=== PATIENT | male | born 1950 | race Caucasian/White ===

== ENCOUNTER → 2018-05-02 | Outpatient (CLI) | payer OTHER ==
[~2018-05-02] MED LIST: ASPI81TA28 PO; COEN30CA8; DIPH-437 PO; GADAVIST IV PRN; MULT-599; SIMV20TA2 PO
--- NOTE | 2018-05-02 09:05 | DIAGNOSTIC IMAGING REPORT ---
THORACIC SPINE COMBO CLINICAL HISTORY: R29.898 lower extremity weakness. Possible demyelinating disease. Difficulty ambulating. COMPARISON STUDY: No previous studies for comparison. FINDINGS: Imaging was performed in the sagittal and axial planes before and after the administration of 6.5 cc of intravenous Gadavist. The examination is mildly compromised due to motion artifact. There are no areas of marrow replacement suspicious for malignancy. There is a focal fatty rests/hemangiomas at the T3 level. No intrinsic cord lesions are visualized. There are no pathologically enhancing lesions. There is a mild T8-9 disc bulge. There is no significant spinal stenosis. IMPRESSION: 1. Mild T8-9 disc bulge 2. No intrinsic cord lesions. 2. No pathologically enhancing masses. Electronically signed by: Eliezer Alarcon M.D. 05/02/2018 9:04 AM Dictated Date/Time: 05/02/2018 8:52 AM
== END | disposition home or self-care (01) ==
LOC: C.MRIBC 07:36
PROVIDERS: ATTEND Psychiatry & Neurology Neurology
DX: R29.898 Other symptoms and signs involving the musculoskeletal system (principal)

== ENCOUNTER → 2018-05-10 | Outpatient (CLI) | payer OTHER ==
[~2018-05-10] MED LIST changes: -GADAVIST IV PRN; +GLUC1CAP35 PO
--- NOTE | 2018-05-10 14:11 | DIAGNOSTIC IMAGING REPORT ---
SACRUM COCCYX MIN 2 VIEWS CLINICAL HISTORY: M54.16 Lumbar radiculopathy lower back/sacral pain COMPARISON STUDY: No previous studies for comparison. FINDINGS: Degenerative changes are present within the lower lumbar spine. No sacral fractures are visualized. There is no nodes of SI joint fusion. There are moderate to severe osteoarthritic changes within the left hip. IMPRESSION: 1. No acute fractures 2. No conventional radiographic evidence of sacroiliitis 3. Moderate to severe degenerative changes within the left hip Electronically signed by: Eliezer Alarcon M.D. 05/10/2018 2:10 PM Dictated Date/Time: 05/10/2018 2:09 PM
--- NOTE | 2018-05-10 14:12 | DIAGNOSTIC IMAGING REPORT ---
PELVIS/BILATERAL HIP 2 VIEWS CLINICAL HISTORY: M54.16 Lumbar radiculopathy pain COMPARISON STUDY: No previous studies for comparison. FINDINGS: Significant degenerative change left hip. Flattening of the superior femoral articular services including several subchondral cysts. A Possible component of avascular process is considered. There are mild degenerative changes right hip. No additional acute bony abnormality is present. There is no evidence for acetabular protrusion. IMPRESSION: 1. Severe degenerative change left hip possibly with an underlying component of avascular necrosis. 2. Moderate degenerative change right hip. The above report was generated using voice recognition software. It may contain grammatical, syntax or spelling errors. Electronically signed by: Emanuel Encarnacion M.D. 05/10/2018 2:10 PM Dictated Date/Time: 05/10/2018 2:09 PM
== END | disposition home or self-care (01) ==
LOC: C.RAD 13:13
PROVIDERS: ATTEND Psychiatry & Neurology Neurology
DX: M54.16 Radiculopathy, lumbar region (principal)

== ENCOUNTER 2018-05-27 04:48 | Inpatient (IN) | payer OTHER ==
[2018-05-20 08:20] VITALS: BMI 19.0
--- NOTE | 2018-05-20 08:33 | PAT Medication Instructions ---
Service Date May 20, 2018. Current Home Medication List Acetaminophen/Diphenhydramine (Tylenol Pm), 1 TAB PO HS Aspirin (Aspirin Ec), 81 MG PO DAILY Dlhzbpcfmdo-Qtfqdlyivqu-Urb C- (Glucosamine Chondroitin), 1 CAP PO QD Multiple Vitamins W/ Minerals (Mens 50+ Multi Vitamin &) Simvastatin (Zocor), 1 TAB PO HS Medication Instructions For Your Scheduled Surgery - Hold the following medications starting 05/20/18: Tyrlkcecbky-Kassnfnapeo-Aak C- (Glucosamine Chondroitin), 1 CAP PO QD - Hold the following medications the morning of surgery: Multiple Vitamins W/ Minerals (Mens 50+ Multi Vitamin &) - Take the following medications as scheduled the night before surgery: Simvastatin (Zocor), 1 TAB PO HS Acetaminophen/Diphenhydramine (Tylenol Pm), 1 TAB PO HS Aspirin (Aspirin Ec), 81 MG PO DAILY If you have any questions please call us at [phone] or [phone] or [phone]
--- NOTE | 2018-05-20 09:25 | DIAGNOSTIC IMAGING REPORT ---
CHEST 2 VIEWS ROUTINE CLINICAL HISTORY: PAT preoperative COMPARISON STUDY: No previous studies for comparison. FINDINGS: The bones soft tissues and hemidiaphragms are normal. The cardiomediastinal silhouette is normal. The lungs are clear. The pulmonary vasculature is normal. IMPRESSION: Negative chest. The above report was generated using voice recognition software. It may contain grammatical, syntax or spelling errors. Electronically signed by: Emanuel Encarnacion M.D. 05/20/2018 9:24 AM Dictated Date/Time: 05/20/2018 9:24 AM
[2018-05-20 10:06] LABS: BASO % 0.2 %; BASO ABS # 0.02 K/uL (0-0.2); EOS ABS # 0.19 K/uL (0-0.5); HEMATOCRIT 45.8 % (42-52); IG# 0.02 K/uL (0.00-0.02); LYMPH % 21.6 %; MEAN CELL VOLUME 93.7 fL (80-100); MEAN CORPUSCULAR HEMOGLOBIN 30.7 pg (25-34); MEAN CORPUSCULAR HGB CONC 32.8 g/dl (32-36); MEAN PLATELET VOLUME 10.2 fL (7.4-10.4); MONO % 8.3 %; MONO ABS # 0.81 K/uL (0.11-0.59); NEUT % 67.7 %; PLATELET COUNT 344 K/uL (130-400); RED CELL DISTRIBUTION WIDTH CV 13.6 % (11.5-14.5); RED CELL DISTRIBUTION WIDTH SD 46.7 fL (36.4-46.3); WHITE BLOOD COUNT 9.74 K/uL (4.8-10.8)
[2018-05-20 10:12] LABS: CALCIUM 9.4 mg/dl (8.5-10.1); CREATININE 0.99 mg/dl (0.60-1.40); INR 0.9 (0.9-1.1); POTASSIUM 4.2 mmol/L (3.5-5.1); PTT PATIENT 26.8 SECONDS (21.0-31.0)
--- NOTE | 2018-05-20 19:43 | HISTORY & PHYSICAL EXAMINATION ---
DATE OF ADMISSION: 05/27/2018 CHIEF COMPLAINT: Left hip and leg pain. HISTORY OF PRESENT ILLNESS: A 67-year-old gentleman referred by my partner Dr. Olmos., for surgical treatment of his left hip. He has got a six-month history of markedly increasing left hip pain and discomfort. He has been through extensive spine and multiple MRI evaluations of his back. They were initially thinking the pain was coming from back, but it has become more localized to his thigh and groin. For the past four to five months, he has been using a cane to get around pretty much limpidly with any weightbearing at all. He has been miserable. He also described some low back pain, but mostly groin pain. He does drink alcohol, but nothing excessive and can do without it. 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 X-rays show hip arthritis. He would like to proceed with surgical treatment of his hip. PAST MEDICAL HISTORY: 1. Low back pain. PAST SURGICAL HISTORY: 1.Left shoulder surgery for instability. ALLERGIES: None. CURRENT MEDICATIONS: 1. Unspecified cholesterol medicine. 2. Multiple supplements. SOCIAL HISTORY: This is a 67-year-old male. He lives by himself. His years ago. He just retired from the [employer] home business. Does not smoke. Eight drinks per week, but can do without. FAMILY HISTORY: Noncontributory. REVIEW OF SYSTEMS: Negative for diabetes, neurologic problems, vascular problems, bleeding disorders. Denies any chest pain, no shortness of breath. No history of DVT or PE. PHYSICAL EXAMINATION: GENERAL: Reveals a very pleasant almost manic energetic thin male. HEENT: Benign. NECK: Supple. No lymphadenopathy. LUNGS: Clear to auscultation. HEART: Regular rate and rhythm. ABDOMEN: Soft, nontender, nondistended. EXTREMITIES: Grossly neurovascularly intact except as follows: Examination of left hip and leg reveals the patient walks with a markedly antalgic gait. He is using a cane. Without the cane, he limps and almost his leg collapses. The leg lengths clinically appear equal. He has got marked pain and overreaction with hip internal rotation. He has got negative straight leg raise. He is neurologically intact. X-RAYS: X-ray of the left hip reviewed. He has advanced left hip DJD. He has got complete loss of superior joint space. He has got cystic changes, fragmentation and flattening on the femoral head and the acetabulum. MRI of lumbar spine was reviewed. It shows diffuse lumbar spondylosis. A little bit more severe in the upper levels. Some moderate stenosis. Nothing severe. Nerve studies revealed an L4 radiculopathy. 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 He does have significant underlying back pathology, but I think the majority of the pain is coming from his hip. Regardless, I do not think he is going to do better until he gets his hip fixed. PLAN: He is back in for hip replacement. We will plan on taking him to the operating room and do a left total hip replacement. The risks and benefits of this procedure were explained to the patient including, but not limited to DVT, PE, , infection, neurological injury, vascular injury, bleeding problem, pain on range of motion, stiffness, failure to relieve symptoms, and complete relief of symptoms, need for further surgery in the future, fracture, leg length inequality, dislocation and need for blood transfusion. I am concerned about his compliance postoperatively. I emphasized the importance of hip precautions. We will put in big head as possible to try and stabilize his hip. He has a Corvette at home and I told him he cannot ride in this for six weeks. He says he understands. As far as discharge plans, he is going to be discharged to home. He does live by himself, but he says he can get some help. MARIE
[~2018-05-27] VITALS: Ht 182.9 cm; Wt 65.5 kg
[2018-05-27] VITALS (19 sets, daily range): BP systolic 94–127; BP diastolic 62–85; PULSE 50–76; TEMP 36.3–36.9; O2SAT 92–100; Ht 182.9 cm; Wt 65.5 kg
[~2018-05-27 04:48] MED LIST changes: -COEN30CA8
[2018-05-27] MEDS ORDERED: METOCLOPRAMIDE HCL 10 MG TAB PO SCH (06:00)
[2018-05-27] MEDS ORDERED: TRANEXAMIC ACID INJ 1,000 MG x 1 Bag Preop IV SCH ×2 (06:00)
[2018-05-27] MEDS ORDERED: ACETAMINOPHEN 500 MG TAB PO SCH (06:00)
[2018-05-27] MEDS ORDERED: LACTATED RINGER'S 1000ML 500 ML IV SCH (06:00)
[2018-05-27] MEDS ORDERED: FAMOTIDINE 20 MG TAB PO SCH (06:00)
[2018-05-27] MEDS ORDERED: SCOPOLAMINE 1.5 MG TDSY TD SCH (06:00)
[2018-05-27] MEDS ORDERED: LACTATED RINGER'S 1000ML 1,000 ML IV SCH ×2 (06:00)
[2018-05-27] MEDS ORDERED: GABAPENTIN 300 MG CAP PO SCH (06:00)
[2018-05-27] MEDS ORDERED: CEFAZOLIN 2000MG IV PUSH 15 ML IV SCH (06:00)
[2018-05-27] MEDS ORDERED: BACITRACIN 50000 UNIT VIAL ONE (06:28)
[2018-05-27] MEDS ORDERED: BUPIVACAINE/EPINEPHRINE 0.5% MPF 1:200,000 30 ML VIAL ONE (06:28)
[2018-05-27] MEDS ORDERED: MIDAZOLAM HCL 1 MG/ML 2ML VIAL ONE ×3 (06:38→07:33)
[2018-05-27] MEDS ORDERED: MoRPHine SULFATE PF 1 MG/ML 10 ML AMP/VIAL ONE (06:39)
[2018-05-27] MEDS ORDERED: BUPIVACAINE 0.5 % 5 MG/1 ML PF 10ML VIAL ONE (06:42)
--- NOTE | 2018-05-27 06:53 | History & Physical Bridge Note ---
H&P Re-Evaluation Bridge Note: I have examined the patient, reviewed the History & Physical and in the interval since the performance of the History & Physical I have noted the following changes of clinical significance: No changes noted
[2018-05-27] MEDS ORDERED: KETAMINE HCL INJ 50 MG/ML 10 ML VIAL ONE (07:19)
[2018-05-27] MEDS ORDERED: PHENYLEPHRINE 100MCG/ML 5ML SYR ONE (08:02)
[2018-05-27] MEDS ORDERED: ONDANSETRON INJ 2 MG/ML 2 ML VIAL ONE (08:02)
[2018-05-27] MEDS ORDERED: DiphenhydrAMINE HCL 50 MG/ML VIAL ONE (08:02)
[2018-05-27] MEDS ORDERED: PROPOFOL IV EMULSION 10 MG/ML 20 ML VIAL ONE ×2 (08:02→08:07)
--- NOTE | 2018-05-27 08:33 | [facility] Post Operative Brief Note ---
Immediate Operative Summary Operative Date May 27, 2018. Pre-Operative Diagnosis Left hip degenerative joint disease Post-Operative Diagnosis Same as Preop Procedure(s) Performed Left Total Hip Arthroplasty Uncemented Surgeon Dr. Brewer [employer] Stripper Etcher Surgeon(s) Pedro Swain PA-C Estimated Blood Loss 200 ml Findings Consistent with Post-Op Diagnosis Fluids (cc crystalloids) 1400 cc Specimens A. Left Femoral Head Drains None Anesthesia Type Spinal MAC Complication(s) none Disposition Accompanied Pt To Recover: yes Disposition: Recovery Room / PACU Overlapping Procedure I was present for: the critical portions of procedure. I was immediately available: during the entire case
[2018-05-27] MEDS ORDERED: MAGNESIUM HYDROXIDE SUSP 30 ML UDC PO PRN (08:45)
[2018-05-27] MEDS ORDERED: ALUMINUM/MAGNESIUM/SIMETH (MAALOX MAX) 30 ML UDC PO PRN (08:45)
[2018-05-27] MEDS ORDERED: BISACODYL 10 MG SUPP PR PRN (08:45)
[2018-05-27] MEDS ORDERED: SILVER SULFADIAZINE 1% CR 50 GM JAR EXT PRN (08:45)
[2018-05-27] MEDS ORDERED: TAMSULOSIN HCL 0.4 MG CAP PO PRN (08:45)
[2018-05-27] MEDS ORDERED: RXC5 PO (08:52)
[2018-05-27] MEDS ORDERED: ASPI-461 PO (08:52)
[2018-05-27] MEDS ORDERED: ACET-24 PO (08:52)
--- NOTE | 2018-05-27 08:54 | Discharge Instructions ---
Discharge Instructions Date of Service May 27, 2018. Admission Reason for Admission: Left Hip Degenerative Joint Disease Discharge Discharge Diagnosis / Problem: Left Hip Replacement Discharge Goals Goal(s): Decrease discomfort, Improve function, Increase independence, Improve disease control, Therapeutic intervention Activity Recommendations Activity Limitations: per Instructions/Follow-up section (Total Hip Precautions.) Weightbearing Status: Left weightbearing . Instructions / Follow-Up Instructions / Follow-Up ACTIVITY RECOMMENDATIONS: Physical Therapy: * Aggressive physical therapy is not usually needed. You will learn to take care of yourself safely and walk. * Follow the "Hip Precautions Instructions." * In some cases, the social sciences chair at the hospital will arrange to have a therapist come to your house for the first couple of weeks to help you learn these skills. * You need to practice on your own or with the help of a family member as needed. * When you learn these skills, most of the therapy can be done on your own. Home Exercise: * You were shown a series of exercises in the hospital. Do these exercises three to four times each day including the exercises you were shown in physical therapy. Walking: * Get up and walk several times each day. For the first four weeks, try not to stand or walk for more than one hour at a time. If you do stand or walk for more than one hour, you will not hurt anything, but your leg will likely swell. * As you feel comfortable, you may change from the walker or crutches to a cane and then to independent walking. MEDICATIONS: New Medicine: * You will likely be taking one or more of these medicines: 1. Oxycodone - Take, as directed, when you need it, every four to six hours to control your pain. 2. Aspirin - Thins your blood to lessen the chance of forming a blood clot. * The most common side effects of pain medicine and iron are nausea and constipation. If nausea or constipation is too much of a problem or if you have any questions about your new medicines or doses, call [facility] at [phone]. We will try to help you manage these issues. VERY IMPORTANT TO READ AND REVIEW" Pain: * The immediate post-operative period after hip replacement surgery is often quite painful. * You are given a prescription for pain medicine. You should take it, as directed, when you need it, especially before physical therapy and before going to bed. Pain that interferes with sleep is very common and can last several months. * You will likely need pain medicine for the first two to four weeks. It will not stop all of the pain. The pain will lessen and as you feel better, you may change to milder pain medicine such as Tylenol. * The most common side effects of pain medicine are nausea and constipation, so don't take more than you need. SPECIAL CARE INSTRUCTIONS: TEDs/Elastic Stockings: * The white elastic stockings help limit swelling and prevent blood clots from forming in your legs. The more you wear them, the more they work. * Wear them for six weeks. Prevention of Infection: * Take antibiotics one hour before any dental cleaning, dental work, urological procedure, gastrointestinal procedure or any invasive surgery in order to prevent your new joint from getting infected. * You may get the antibiotics from the doctor performing the procedure or you may call our office at before and we will call in a prescription to the pharmacy of your choice. Things to Watch For: * Drainage from the incision site that occurs more than one week after your surgery. * Severely increased leg pain or swelling. * Increased redness at the incision site. * Fever above 102 degrees Fahrenheit. * Unusual chest pain or shortness of breath. * Unusual pain or burning with urination. Call [facility] at with any of the above problems or if you have any questions about your medicines or recovery. FOLLOW UP VISIT: Make an appointment to see your doctor for approximately two weeks after surgery for a progress check and staple removal by calling the office at . Current Hospital Diet Patient's current hospital diet: Regular Diet Discharge Diet Recommended Diet: Regular Diet Procedures Procedures Performed: Left Total Hip Arthroplasty Uncemented Pending Studies Studies pending at discharge: no Medical Emergencies . Who to Call and When: Medical Emergencies: If at any time you feel your situation is an emergency, please call [phone] immediately. . Non-Emergent Contact Non-Emergency issues call your: Surgeon . "Provider Documentation" section prepared by Joseph Brewer. .
[2018-05-27] MEDS ORDERED: ATROPINE SULFATE 0.1 MG/ML 5ML SYR IV PRN (09:00)
[2018-05-27] MEDS ORDERED: HYDROmorphone INJ 0.5 MG/0.5 ML SYR IV PRN (09:00)
[2018-05-27] MEDS ORDERED: MULTIVITAMIN TAB PO SCH (09:00)
[2018-05-27] MEDS ORDERED: ONDANSETRON INJ 2 MG/ML 2 ML VIAL IV PRN ×2 (09:00→10:30)
[2018-05-27] MEDS ORDERED: PHENYLEPHRINE 100MCG/ML 5ML SYR IV PRN (09:00)
[2018-05-27] MEDS ORDERED: EpHEDrine SULFATE INJ 50 MG/ML AMP IV PRN ×2 (09:00→10:30)
--- NOTE | 2018-05-27 09:13 | DIAGNOSTIC IMAGING REPORT ---
L PELVIS/UNILATERAL HIP 1 VIEW CLINICAL HISTORY: 67 years-old Male presenting with IN PACU - A/P PELVIS and LATERAL HIP INCLUDING ALL OF IMPLANT. TECHNIQUE: Single frontal view of the pelvis and crosstable lateral view of the left hip were obtained. COMPARISON: 05/20/2018. FINDINGS: Postsurgical change of total left hip arthroplasty. Expected intra-articular and soft tissue emphysema. Overlying skin marylin noted. No malalignment. No periprosthetic fracture. Osteopenia suspected. Mild degenerative change of the right hip joint. Bony pelvis intact. Vasectomy clips noted with a Davis catheter in place. IMPRESSION: Expected postsurgical appearance status post total left hip arthroplasty. Electronically signed by: Jorge Galaviz M.D. 05/27/2018 9:11 AM Dictated Date/Time: 05/27/2018 9:10 AM
[2018-05-27] MEDS ORDERED: LACTATED RINGER'S 1000ML 500 ML IV PRN (10:21)
[2018-05-27] MEDS ORDERED: NALOXONE HCL INJ 0.08 MG in SYRINGE 1.8 ML IV PRN (10:21)
[2018-05-27] MEDS ORDERED: SODIUM CHLORIDE 0.9% 1000ML 1,000 ML IV PRN (10:21)
[2018-05-27] MEDS ORDERED: NALOXONE HCL INJ 1 MG in SODIUM CHLORIDE 0.9% 1000ML 1,000 ML IV PRN (10:21)
[2018-05-27] MEDS ORDERED: MoRPHine SULFATE 2 MG/ML CARP IV PRN (10:30)
[2018-05-27] MEDS ORDERED: NALOXONE HCL 0.4 MG/1 ML VIAL/CARP IV PRN (10:30)
[2018-05-27] MEDS ORDERED: MoRPHine SULFATE PF 1 MG/ML 10 ML AMP/VIAL EPI PRN (10:30)
[2018-05-27] MEDS ORDERED: NO NARCOTICS OR SEDATIVES SCH (10:30)
[2018-05-27] MEDS ORDERED: DiphenhydrAMINE HCL 50 MG/ML VIAL IV PRN (10:30)
[2018-05-27] MEDS ORDERED: NALBUPHINE HCL INJ 10 MG/ML 1ML AMP IV PRN (10:30)
--- NOTE | 2018-05-27 10:59 | Anesthesiology Progress Note ---
Anesthesia Post Op Note Date & Time May 27, 2018 at 10:59 Vital Signs Pain Intensity: 0 Vital Signs Past 12 Hours Date Time Temp Pulse Resp B/P (MAP) Pulse Ox O2 Delivery O2 Flow Rate FiO2 05/27/18 10:42 50 16 106/69 (81) 100 Nasal Cannula 2.0 05/27/18 10:15 16 100 05/27/18 10:15 100 Nasal Cannula 2.0 05/27/18 09:55 60 12 98/62 (66) 99 Nasal Cannula 2 05/27/18 09:40 58 12 95/60 (66) 100 Nasal Cannula 2 05/27/18 09:30 36.1 58 12 99/60 (64) 99 Nasal Cannula 2 05/27/18 09:20 59 21 94/62 99 Nasal Cannula 4 05/27/18 09:10 65 18 101/65 99 Oxymask 10 05/27/18 09:00 71 23 98/64 100 Oxymask 10 05/27/18 08:50 73 19 99/56 100 Oxymask 10 05/27/18 08:37 36.2 74 19 85/50 99 Oxymask 10 05/27/18 05:32 36.4 67 18 116/85 100 Room Air Notes Mental Status: alert / awake / arousable, participated in evaluation Pt Amnestic to Procedure: Yes Nausea / Vomiting: adequately controlled Pain: adequately controlled Airway Patency, RR, SpO2: stable & adequate BP & HR: stable & adequate Hydration State: stable & adequate Anesthetic Complications: no major complications apparent
--- NOTE | 2018-05-27 11:29 | PROGRESS NOTE ---
DATE: 05/27/2018 SUBJECTIVE: A 67-year-old gentleman postop from a left hip replacement. He is doing well. Not having any pain yet. No chest pain or shortness of breath. Not feeling dizzy or lightheaded. OBJECTIVE: VITAL SIGNS: Temperature 36.1. Vital signs stable. PHYSICAL EXAMINATION: GENERAL: Physical exam shows a pleasant, middle-aged male. He is lying in bed, looks completely comfortable. I had to wake him on going to the room this afternoon. LUNGS: Clear to auscultation. HEART: Has a regular rate and rhythm. ABDOMEN: Soft, nontender, nondistended. EXTREMITIES: Grossly neurovascularly intact except as follows: Examination of the left lower extremity reveals his leg lengths to be equal. Hip is located. Dressing is clean, dry and intact. Thigh is soft and supple. He can dorsiflex and plantarflex his foot appropriately. He is neurologically intact. X-RAYS: X-ray of the left hip from recovery room was reviewed. It shows left uncemented total hip arthroplasty. Components are in good position. No signs of problems. ASSESSMENT: A 67-year-old gentleman postop from a left hip replacement, doing well. His pain is controlled. His hip is located. He is neurologically intact. PLAN: 1. DVT prophylaxis including thigh-high TEDs, SCDs, and aspirin twice a day. 2. PT and OT. Weight bear as tolerated. Left total knee protocol. 3. Pain control, doing well with current pain regimen. We will have to add additional medicines as the spinal wears off. 4. IV antibiotics x24 hours. 5. Disposition: He is planning to be discharged to home with some home health once adequately recovered.
[2018-05-27] MEDS: FERROUS GLUCONATE 324 MG TAB PO SCH ×2 (13:23→17:52)
[2018-05-27] MEDS: PANTOprazole SOD 40 MG TAB PO SCH (13:23)
[2018-05-27] MEDS: DOCUSATE SODIUM 100 MG CAP PO SCH ×2 (13:23→21:06)
[2018-05-27] MEDS: CEROVITE ADV FORMULA TAB PO SCH (13:23)
[2018-05-27] MEDS: D5W AND 1/2NSS + 20MEQ KCL 1,000 ML IV SCH ×2 (13:24→21:04)
[2018-05-27] MEDS: ACETAMINOPHEN 500 MG TAB PO SCH ×2 (13:25→21:07)
[2018-05-27] MEDS: CEFAZOLIN IV 1,000 MG in SYRINGE 0 ML IV SCH ×2 (14:36→22:37)
--- NOTE | 2018-05-27 15:42 | OPERATIVE REPORT ---
DATE OF OPERATION: 05/27/2018 PREOPERATIVE DIAGNOSIS: Left hip degenerative joint disease. POSTOPERATIVE DIAGNOSIS: Left hip degenerative joint disease. PROCEDURE PERFORMED: Left uncemented ceramic on highly cross-linked polyethylene total hip arthroplasty. COMPLICATIONS: None. ESTIMATED BLOOD LOSS: 200 mL. FLUID REPLACEMENT: 1400 mL crystalloid fluid replacement. ANESTHESIA: Spinal. DRAINS: None. SPECIMENS: Left femoral head sent for pathology. OPERATIVE INDICATIONS: The patient is a 67-year-old very active gentleman who has had about a 6-month history of markedly increased left hip pain and discomfort. The patient has been through extensive evaluation of his spine as well as his hips. X-ray showed advanced hip arthritis. Pain has become debilitating to the point where he has had to use his assistance device for the past 3 months. He now elected to proceed with total hip arthroplasty. OPERATIVE FINDINGS: Operative findings revealed advanced left hip DJD. Extensive grade 4 hjkj-al-kvye disease of the femoral head and acetabulum with large hip joint effusion. He looks like he has some degree of avascular necrosis with sloughing of some of the cartilage with some cartilage fragments in the joint. OPERATIVE IMPLANTS: Operative implants consisted of: 1. A Biomet size 56 mm G7 acetabular cup. 2. 6.5 cancellous acetabular screws, 1 at 35 mm length and 1 at 25 mm length. 3. An apex hole eliminator. 4. The highly cross-linked polyethylene liner with 56 mm outer diameter, 36 mm inner diameter. 5. DePuy size 15 KLA Corail femoral stem. 6. A +8.5/36 mm ceramic articular ball. OPERATIVE PROCEDURE: The patient was taken to the operating room, identified and placed on the operating room table in supine position. All contact areas were appropriately padded. IV antibiotics were provided by anesthesia team. A spinal anesthetic had been implemented in the holding area. Davis catheter was placed in sterile fashion. The patient was then placed in the right lateral decubitus position. An axillary roll was placed. Stlberg hip positioner was used for positioning. Left hip and leg were then prepped and draped in usual sterile fashion. A posterolateral approach to the left hip was then performed through a curvilinear incision centered over the greater trochanter. Sharp dissection was carried down through the subcutaneous tissues down to the level of the IT band and gluteal fascia. The IT band and gluteal fascia was incised longitudinally in line with skin incision. The underlying greater trochanteric bursa was excised. The piriformis and external rotators were tagged and taken off the posterior aspect of the femur. Great care was taken throughout the procedure to protect the sciatic nerve at all times. Posterior capsulotomy was then performed leaving a large flap for later repair. Hip was internally rotated and dislocated. Femoral neck osteotomy cut was made with final cut about 12 mm above the lesser trochanter. Femoral head was removed and sent for pathology. The femur was retracted anteriorly. Attention was then drawn to the acetabulum. The acetabular labrum was excised. The pulvinar fat was excised. Sequential reaming of the acetabulum was then performed beginning with a size 49 progressing up to 55. A size 56 mm G7 acetabular shell was then placed in about 40 degrees of lateral opening and about 25 degrees of anteversion. I did increase his anteversion as I was concerned about his compliance postoperatively. The acetabulum was fixed with two 6.5 cancellous acetabular screws. A trial liner was placed. Attention was then drawn to the femur. The proximal femur was entered with a cookie cutter, followed by canal finder. I then broached beginning with a size 8 and progressing up to a 15. We got excellent fit at 15. Calcar reamer was used to smoothen off the calcar. I then trialed the hip. The hip was fully stable, but the soft tissue tension was lax. Therefore, I used a +8.5 head as I was concerned about his compliance. The hip was fully stable in full extension and external rotation, flexion to 90 degrees, internal rotation over 70 degrees. We elected to use these implants. All trial implants were removed. An apex hole eliminator was placed. Highly cross-linked polyethylene liner was placed. A DePuy Corail coxa vera/KLA size 15 femoral stem was impacted in position. I left this just slightly proud. A +8.5/36 mm ceramic articular ball was placed. Hip was located and found to be extremely stable. Attention was then drawn to closing. The wound was irrigated with copious amounts of pulsatile lavage solution. I did inject locally with 60 mL of 0.5% Marcaine with epinephrine. The posterior capsule and external rotators were repaired through drill holes in the posterior trochanter with #2 Ti-Cron suture. The IT band and gluteal fascia were then closed with #1 PDS suture in running fashion. The subcutaneous tissue was then closed with 2 layers with a deep layer 0 Vicryl suture and subcutaneous tissue with 2-0 Dexon suture in a buried interrupted fashion. The skin was closed with skin marylin. Leg was then cleaned and dried and a sterile dressing of Xeroform, 4 x 4's, sterile ABD pad and foam tape was applied. The patient then transferred to the recovery room in stable condition. The patient tolerated the procedure well with no complications. All needle and sponge counts were correct at the end of the operation. I attest to the content of the Intraoperative Record and any orders documented therein. Any exception s are noted below.
[2018-05-27] MEDS ORDERED: NURSING VERBAL MED ORDER ONE ×2 (15:45→16:00)
[2018-05-27] MEDS ORDERED: KETOROLAC TROMETHAMINE 15 MG/ML VIAL ONE (15:54)
[2018-05-27] MEDS: CHECK SCOPOLAMINE PATCH PLACEMENT SCH (16:00)
[2018-05-27] MEDS ORDERED: TRANEXAMIC ACID INJ 1,000 MG in SODIUM CHLORIDE 0.9% 100ML 100 ML IV ONE (16:30)
[2018-05-27] MEDS: SENNA 8.6 MG TAB PO SCH (21:05)
[2018-05-27] MEDS: ASPIRIN 81 MG ECTAB PO SCH (21:05)
[2018-05-27] MEDS: SIMVASTATIN 20 MG TAB PO SCH (21:07)
[2018-05-28] VITALS (7 sets, daily range): BP systolic 104–115; BP diastolic 66–71; PULSE 60–78; TEMP 36.5–37.2; O2SAT 97–100
[2018-05-28] MEDS ORDERED: HYDROmorphone INJ 0.5 MG/0.5 ML SYR IV PRN (01:00)
[2018-05-28] MEDS ORDERED: DC INTRASPINAL MORPHINE SCH (01:00)
[2018-05-28] MEDS ORDERED: ZOLPIDEM TARTRATE 5 MG TAB PO PRN (01:01)
[2018-05-28] MEDS ORDERED: ONDANSETRON INJ 2 MG/ML 2 ML VIAL IV PRN (01:01)
[2018-05-28] MEDS ORDERED: METOCLOPRAMIDE HCL INJ 5 MG/ML 2 ML VIAL IV PRN (01:01)
[2018-05-28] MEDS ORDERED: OXYCODONE HCL IR 5 MG TAB (IMMEDIATE RELEASE) PO PRN (01:01)
[2018-05-28] MEDS: KETOROLAC TROMETHAMINE 15 MG/ML VIAL IV. SCH ×4 (02:31→20:40)
[2018-05-28] MEDS: ACETAMINOPHEN 500 MG TAB PO SCH ×3 (05:31→22:28)
[2018-05-28] MEDS: D5W AND 1/2NSS + 20MEQ KCL 1,000 ML IV SCH (05:32)
[2018-05-28 06:42] LABS: BASO % 0.1 %; BASO ABS # 0.01 K/uL (0-0.2); EOS % 0.5 %; EOS ABS # 0.05 K/uL (0-0.5); HEMATOCRIT 35.5 % (42-52); HEMOGLOBIN 11.9 g/dL (14.0-18.0); IG# 0.03 K/uL (0.00-0.02); LYMPH % 15.7 %; MEAN CELL VOLUME 92.2 fL (80-100); MEAN CORPUSCULAR HEMOGLOBIN 30.9 pg (25-34); MEAN CORPUSCULAR HGB CONC 33.5 g/dl (32-36); MEAN PLATELET VOLUME 10.1 fL (7.4-10.4); MONO % 8.8 %; MONO ABS # 0.95 K/uL (0.11-0.59); NEUT % 74.6 %; NEUT ABS # 8.06 K/uL (1.4-6.5); PLATELET COUNT 222 K/uL (130-400); RED CELL DISTRIBUTION WIDTH CV 13.6 % (11.5-14.5); RED CELL DISTRIBUTION WIDTH SD 45.5 fL (36.4-46.3)
[2018-05-28 07:11] LABS: CALCIUM 7.9 mg/dl (8.5-10.1); CREATININE 0.85 mg/dl (0.60-1.40); POTASSIUM 4.2 mmol/L (3.5-5.1)
[2018-05-28] MEDS: FERROUS GLUCONATE 324 MG TAB PO SCH ×3 (08:05→17:54)
[2018-05-28] MEDS: CHECK SCOPOLAMINE PATCH PLACEMENT SCH ×4 (08:05→23:39)
[2018-05-28] MEDS: PANTOprazole SOD 40 MG TAB PO SCH (09:20)
[2018-05-28] MEDS: DOCUSATE SODIUM 100 MG CAP PO SCH ×2 (09:20→20:40)
[2018-05-28] MEDS: CEROVITE ADV FORMULA TAB PO SCH (09:21)
[2018-05-28] MEDS: ASPIRIN 81 MG ECTAB PO SCH ×2 (09:22→20:41)
[2018-05-28] MEDS: TAPENTADOL ER 50 MG TABCR PO SCH ×2 (09:25→20:43)
--- NOTE | 2018-05-28 10:25 | PROGRESS NOTE ---
DATE: 05/28/2018 CHIEF COMPLAINT: Status post left total hip arthroplasty, postop day #1. PROGRESS: Edward was seen and examined at bedside today. Overall, he is doing fairly well. He is having a little bit of soreness in his hip, it is not too bad. He is a little concerned that he cannot flex his hip very well. He is trying to do all the exercises on the papers. Otherwise, he has no complaints. PHYSICAL EXAMINATION: LEFT HIP: The dressing is clean and dry. His leg lengths are essentially equal. He has active dorsiflexion and plantar flexion of his left ankle. Sensation is intact throughout. LABS: He has an H and H today of 11.9 and 35.5. His glucose is 99. His vital signs are all stable on room air. He is voiding on his own. IMPRESSION: Status post left total hip arthroplasty, postop day #1. PLAN: At this point, he is doing fairly well. I told him that it is difficult to do hip flexion exercises immediately on postop day #1. He was glad to hear that. He will be seen by physical therapy today for ambulation. If he is feeling better this afternoon, I told him he could be discharged to home. Otherwise, if he wants to stay an extra night, I can see him tomorrow morning. Will use aspirin for DVT prophylaxis.
[2018-05-28] MEDS: SENNA 8.6 MG TAB PO SCH (20:40)
[2018-05-28] MEDS: SIMVASTATIN 20 MG TAB PO SCH (20:41)
[2018-05-29] MEDS: KETOROLAC TROMETHAMINE 15 MG/ML VIAL IV. SCH ×2 (05:59→07:47)
[2018-05-29] MEDS: ACETAMINOPHEN 500 MG TAB PO SCH (05:59)
[2018-05-29 06:39] VITALS: BP 127/75; PULSE 78; TEMP 37.1; O2SAT 98
--- NOTE | 2018-05-29 06:42 | PROGRESS NOTE ---
DATE: 05/29/2018 CHIEF COMPLAINT: Status post left total hip arthroplasty, postop day #2. PROGRESS: Overall, Edward is doing fairly well. He stayed overnight just to make sure he had a little bit of more strength before being discharged to home. He did well yesterday with physical therapy. His pain is better today and he has no new complaints. PHYSICAL EXAMINATION: LEFT HIP: The dressing is clean and dry, and his leg lengths are equal. He can flex his hip this morning and he is neurovascularly intact. IMPRESSION: Status post left total hip arthroplasty, postop day 2. PLAN: At this point, he is doing well. He is on aspirin for DVT prophylaxis. He has been participating well with physical therapy. He can be discharged to home with [facility] later today.
[2018-05-29] MEDS: CHECK SCOPOLAMINE PATCH PLACEMENT SCH (07:48)
[2018-05-29] MEDS: FERROUS GLUCONATE 324 MG TAB PO SCH (07:49)
[2018-05-29] MEDS: TAPENTADOL ER 50 MG TABCR PO SCH (08:22)
[2018-05-29] MEDS: PANTOprazole SOD 40 MG TAB PO SCH (08:22)
[2018-05-29] MEDS: CEROVITE ADV FORMULA TAB PO SCH (08:22)
[2018-05-29] MEDS: DOCUSATE SODIUM 100 MG CAP PO SCH (08:23)
[2018-05-29] MEDS: ASPIRIN 81 MG ECTAB PO SCH (08:23)
[2018-05-29 08:49] VITALS: BP 127/75; PULSE 78; TEMP 37.1; O2SAT 98
--- NOTE | 2018-06-02 16:14 | DISCHARGE SUMMARY ---
ADMITTING PHYSICIAN AND SURGEON: Dr. Brewer. ADMITTING DIAGNOSIS: Left hip degenerative joint disease. SURGERY PERFORMED: Left total hip arthroplasty. SECONDARY DIAGNOSIS: Low back pain. CONSULTS: None obtained. HISTORY AND PHYSICAL EXAMINATION: Well documented in the patient's chart. HOSPITAL COURSE: Patient was admitted on 05/27/2018, underwent total hip arthroplasty. He tolerated the procedure well. There were no complications. He was transferred to the PACU postoperatively and later to the orthopedic floor for further care. He was given Ancef for antibiotic prophylaxis, KAYLYNN stockings, SCDs and aspirin for DVT prophylaxis. Hemoglobin, hematocrit and vital signs were monitored during his hospital stay and remained stable. He did not require any blood transfusions. There were no complications. By postoperative day 2, he was tolerating a regular diet, pain was controlled with oral pain medicine. He was participating in physical therapy. Postop day 2, he was discharged home, set up with home health services, given printed discharge instructions including new prescriptions for extra strength Tylenol, aspirin, oxycodone. He was instructed to continue his home medicines with the exception of Tylenol PM and aspirin which were changed. Continue physical therapy, weightbearing as tolerated, KAYLYNN stockings, total hip precautions and follow up approximately 2 weeks postoperatively or sooner if any problems or concerns.
== END 2018-05-29 10:40 | disposition home health service (06) | DRG 470 ==
LOC: C.ACU 04:48 → C.3E 06:40 → ENRESERV 09:22
PROVIDERS: ADMIT Orthopaedic Surgery Sports Medicine; ATTEND Orthopaedic Surgery Sports Medicine
PROC: 0SRB04A Replacement of Left Hip Joint with Ceramic on Polyethylene Synthetic Substitute, Uncemented, Open Approach (ICD-10-PCS; principal; 2018-05-27 07:00)
DX: M16.12 Unilateral primary osteoarthritis, left hip (principal); M87.9 Osteonecrosis, unspecified; M25.452 Effusion, left hip; M47.816 Spondylosis without myelopathy or radiculopathy, lumbar region; M48.061 Spinal stenosis, lumbar region without neurogenic claudication; E78.5 Hyperlipidemia, unspecified; Z79.82 Long term (current) use of aspirin; Z79.899 Other long term (current) drug therapy

== ENCOUNTER 2024-03-28 06:33 | Observation (INO) ==
--- NOTE | 2024-03-21 13:27 | PAT Medication Instructions ---
Medication Instructions Date of Service March 21, 2024 Home Medications Medication Instructions Recorded Jules Foster #1 ea 03/21/24 aspirin 81 mg tablet,delayed release 81 mg PO DAILY ocutrjaenvqo-xgoyzgtt-bazzyb tablet (Multivitamin 50 Plus tablet) 1 tab PO DAILY omeprazole 20 mg tablet,delayed release 20 mg PO QAM tamsulosin 0.4 mg capsule 0.4 mg PO HS Continue as directed aspirin 81 mg tablet,delayed release 81 mg PO DAILY (unless surgeon directed otherwise) DO NOT take the morning of surgery xbjmfpjftjmo-hletiyko-qocbhi tablet (Multivitamin 50 Plus tablet) 1 tab PO DAILY Take morning of surgery With a small sip of water, OTHERWISE NOTHING TO EAT OR DRINK AFTER MIDNIGHT: omeprazole 20 mg tablet,delayed release 20 mg PO QAM Take evening before surgery tamsulosin 0.4 mg capsule 0.4 mg PO HS Other Notes If you have any questions please call us at [phone] or [phone] or [phone] or [phone]
--- NOTE | 2024-03-23 08:33 | Anesthesiology Consultation ---
Date of Service March 23, 2024 Assessment & Plan (1) Encounter for pre-operative examination: - Infectious disease screening: Per assessment on 03/23/24: No known recent infectious disease contacts or current infectious disease symptoms. - Outpatient joint assessment: Pt currently scheduled for inpatient pathway. If surgeon requests review for outpatient joint pathway, patient is an acceptable candidate for outpatient joint program from anesthesia standpoint pending surgeon's office assessment that patient is motivated, has good support and completes Same Day Joint Program preop requirements. Chart Review Chart Review: Acceptable Risk for Surgery and Patient seen in Pre Admission Testing Teaching & Discussion Pre-Anesthesia Teaching/Discussion Notes: Instructed NPO after midnight before surgery,except medications with 15 cc of water. Medication instructions provided according to the PAT guidelines. History Surgery Operation Date: 03/28/24 07:00 Proposed Procedures p Right Total Hip Arthroplasty - Joseph Brewer MD Height/Weight Height: 6 ft 0.5 in Weight: 67.9 kg Allergies Allergy/AdvReac Type Severity Reaction Status Date / Time No Known Allergies Allergy Verified 03/21/24 12:53 Medications Home Medications Medication Instructions Recorded Confirmed Last Taken Wheeled Walker #1 ea 03/21/24 Unknown aspirin 81 mg tablet,delayed 81 mg PO DAILY 03/21/24 03/21/24 Unknown release rgjorudemekq-havxqxob-ydwnzg 1 tab PO DAILY 03/21/24 03/21/24 Unknown tablet (Multivitamin 50 Plus tablet) omeprazole 20 mg tablet,delayed 20 mg PO QAM 03/21/24 03/21/24 Unknown release tamsulosin 0.4 mg capsule 0.4 mg PO HS 03/21/24 03/21/24 Unknown Past Medical History Medical History (Updated 03/23/24 @ 13:55 by Guadalupe Cook) Anemia Arthritis BPH (benign prostatic hyperplasia) Degenerative joint disease of right hip Hearing deficit Hx of gout Hyperlipidemia Exercise / Class Metabolic Activity III < 4 Walking/Shop/Light housework (Regular gym activity, activity limited by hip pain) Past Surgical History Surgical History Family history of reaction to anesthesia Son: Slow to wake/difficulty breathing with anesthesia emergence - vasectomy and hernia repair. No further details available. No similar personal issues for patient. H/O shoulder surgery left History of cataract surgery R/L History of colonoscopy History of hip surgery Left hip dislocation repair History of tooth extraction History of total left hip arthroplasty Left JOSE ELIAS: SAB at [facility] (05/27/2018) Hx of vasectomy Past Anesthesia History No Hx of Anesthesia Complications * Son: Slow to wake/difficulty breathing with anesthesia emergence - vasectomy and hernia repair. No further details available. No personal similar issues for patient. History of PONV No Hx of PONV and No Hx of Motion Sickness Social History Smoking Status: Never smoker Do You Dip or Chew Tobacco: No Hx Alcohol Use: Yes Alcohol type: hard liquor alcohol intake frequency: a few times a week Hx Substance Use: Yes substance use type: marijuana (Daily use, inhaled) Review of Systems Patient denies chest pain, shortness of breath, dyspnea on exertion, fever, chills, cough, wheezing, palpitations. Physical Exam Vital Signs BP P TEMP SP02 RESP Physical Full cervical extension range of motion. Full TMJ range of motion. TMD __ finger breaths Mallampati Score ___ Dentition: missing sides/molars, upper front "repaired" Lungs: clear throughout to auscultation Cardiac: regular rate and rhythm, no murmurs noted Spine: normal Carotid arteries: negative bruit Extremities: no LE edema Lab Results Anesthesia Preop Results Results Anesthesia Widget: WBC 6.73 K/ul (4.8-10.8) 03/23/24 Hgb 12.9 g/dl (14.0-18.0) L 03/23/24 Hct 38.5 % (42.0-52.0) L 03/23/24 Plt 285 K/uL (130-400) 03/23/24 Na 136 mmol/L (136-145) 03/23/24 K 3.9 mmol/L (3.5-5.1) 03/23/24 Cl 104 mmol/L (98-107) 03/23/24 CO2 26 mmol/L (21-32) 03/23/24 BUN 21 mg/dl (6-23) 03/23/24 Creat 0.97 mg/dl (0.6-1.4) 03/23/24 Glucose Level 94 mg/dl (70-99(Fasting)) 03/23/24 PT 10.3 Seconds (9.0-12.0) 03/23/24 PTT 27 Seconds (21-31) 03/23/24 INR 0.9 (0.9-1.1) 03/23/24 Blood Type O Positive 03/23/24 Antibody Screen NEGATIVE 03/23/24 Testing Electrocardiogram Date: 03/23/24 SR with PVCs at 72bpm. "Otherwise normal ECG" Chest X-Ray Date: 03/23/24 FINDINGS: Lung volumes are normal. Lungs are clear. A nipple shadow projects over the left lower lung. Multiple old right-sided rib fractures are unchanged. There is no pneumothorax or pleural effusion. Cardiac size is normal. Mediastinal contours are normal. There is no evidence for pulmonary edema. IMPRESSION: No acute cardiopulmonary findings.
[~2024-03-28 06:33] MED LIST changes: +ACETAMINOPHEN 500 MG TAB PO SCH; -ASPI81TA28 PO; +CeleBREX 200 MG CAP PO SCH; -DIPH-437 PO; +FAMOTIDINE 20 MG TAB PO SCH; -GLUC1CAP35 PO; +LR 500ML BOLUS, THEN 15ML/HR IV SCH; +LR 60ML/HR IV SCH; +METOCLOPRAMIDE HCL 10 MG TABLET PO SCH; -MULT-599; +ROPIVACAINE 0.5% 5 MG/ML 30 ML VIAL ONE; -SIMV20TA2 PO; +TRANEXAMIC ACID 1,000 MG **IV Pre-op IV SCH; +ceFAZolin 2000MG 2,000 MG/15 ML SYR IV SCH; +dexAMETHasone**PF** 10 MG/ML VIAL IV SCH
--- NOTE | 2024-03-28 06:47 | History & Physical Bridge Note ---
Date of Service March 28, 2024 History & Physical Bridge Note I have examined the patient, reviewed the History & Physical and in the interval since the performance of the History & Physical I have noted the following changes of clinical significance: no changes noted
[2024-03-28] MEDS: LR 500ML BOLUS, THEN 15ML/HR IV SCH (07:27)
[2024-03-28] MEDS: LR 60ML/HR IV SCH (07:28)
[2024-03-28] MEDS: CeleBREX 200 MG CAP PO SCH (07:36)
[2024-03-28] MEDS: dexAMETHasone**PF** 10 MG/ML VIAL IV SCH (07:36)
[2024-03-28] MEDS: FAMOTIDINE 20 MG TAB PO SCH (07:36)
[2024-03-28] MEDS: METOCLOPRAMIDE HCL 10 MG TABLET PO SCH (07:36)
[2024-03-28] MEDS: ACETAMINOPHEN 500 MG TAB PO SCH ×2 (07:36→14:28)
[2024-03-28] MEDS ORDERED: MIDAZOLAM HCL 1 MG/ML 2ML VIAL ONE (07:38)
[2024-03-28] MEDS ORDERED: PROPOFOL IV EMULSION 10 MG/ML 20 ML VIAL IV ONE (07:38)
[2024-03-28] MEDS ORDERED: LIDOCAINE 2% 2 ML VIAL/AMP(20MG/ML) INFIL ONE (07:38)
[2024-03-28] MEDS ORDERED: fentaNYL citrate PF 100 MCG/2 ML VIAL IV PRN (08:18)
[2024-03-28] MEDS ORDERED: ONDANSETRON INJ 2 MG/ML 2 ML VIAL IV PRN ×2 (08:18→11:36)
[2024-03-28] MEDS ORDERED: ePHEDrine sulfate 50 MG/ML AMP IV PRN (08:18)
[2024-03-28] MEDS ORDERED: ATROPINE SULFATE 0.1 MG/ML 10ML SYR IV PRN (08:18)
[2024-03-28] MEDS ORDERED: HYDROmorphone INJ 1 MG/ML SYRINGE IV PRN (08:18)
[2024-03-28] MEDS: TRANEXAMIC ACID 1,000 MG **IV Pre-op IV SCH (08:34)
[2024-03-28] MEDS: ceFAZolin 2000MG 2,000 MG/15 ML SYR IV SCH (08:55)
[2024-03-28] MEDS ORDERED: fentaNYL citrate PF 100 MCG/2 ML VIAL ONE (09:21)
[2024-03-28] MEDS ORDERED: KETAMINE HCL 10MG/ML SYR ONE (09:22)
[2024-03-28] MEDS: BUPIVACAINE/EPINEPHRINE 0.5% MPF 1:200,000 30 ML VIAL ONE (09:29)
[2024-03-28] MEDS ORDERED: ONDANSETRON INJ 2 MG/ML 2 ML VIAL ONE (09:37)
[2024-03-28] MEDS ORDERED: PHENYLEPHRINE 100MCG/ML 10ML SYR IV ONE (09:38)
[2024-03-28] MEDS ORDERED: ePHEDrine sulfate 50 MG/5 ML SYR ONE (09:55)
--- NOTE | 2024-03-28 10:37 | Operative Report ---
PG Post Operative Report Pre & Post Diagnosis Operation Date: 03/28/24 08:50 Pre-Op Diagnosis: Right Hip Degenerative Joint Disease Post-Op Diagnosis: Right Hip Degenerative Joint Disease with partial hip abductor tear I identified the patient and participated in the time-out.: Yes Procedure Operation Date: 03/28/24 08:50 Actual Procedures p Right Total Hip Arthroplasty(Right) with hip abductor repair- Joseph Brewer MD Surgeon Joseph Brewer MD Civil Litigation Attorney Pedro Swain PA-C Estimated Blood Loss 100 Findings Consistent with Post-Op Diagnosis Operative findings were advanced right hip DJD. He extensive grade 4 dxhw-bj-zlzu disease the femoral head and acetabulum. Fairly large medial acetabular osteophyte. Fairly osteopenic. Specimens Right femoral head sent for pathology. Anesthesia Type Spinal MAC Complications none Disposition Accompanied Patient To Recovery: No Indications Patient is a 73-year-old very active gentleman is had a long history of hip problems. He had his left hip replaced several years ago was done well from this. Over the past several years he developed increased pain discomfort in her right hip groin and testicular area. Is gone undergone extensive neurological workup which was fairly negative. Eventually had a hip x-ray which showed advanced hip arthritis. He is electing proceed with total hip arthroplasty. Description of Procedure Operative implants consist of: 1 Biomet G7 size 60 mm acetabular shell. 2. 6.5 cancellous acetabular screws 1 of 35 mm in length and 1 of 25 mm length. 3. [place] hole supervisor leaf spring fabrication. 4. Highly cross-linked polyethylene liner with a 60 mm outer diameter and 40 mm inner diameter. 5. DePuy Corail size 15 KLA femoral stem. 6. +1.5/40 mm ceramic articular ball. The patient was taken the operating, identified, placed on the operating table in the supine position but all contact areas were appropriately padded. IV antibiotics were by anesthesia team. A spinal anesthetic had been implemented holding area. The patient was then placed in the left lateral decubitus position. Axillary roll was placed. Distal Birkett position was used for positioning. The right hip and leg were then prepped and draped in usual sterile fashion. A posterolateral approach to the right hip was then performed to a curvilinear incision centered over the greater trochanter. Sharp dissection carried through subcutaneous tissue down to level the IT band gluteal fascia the IT band gluteal fascia incised longitudinally in line with skin incision. The underlying greater bursa was excised. The piriformis and external rotators along with the posterior joint capsule were then released from the posterior aspect hip as a single layer. Hip was internally rotated and dislocated. Femoral neck osteotomy cut was made with Final Cut about 12 mm above the lesser trochanter. Femoral head was removed and sent for pathology. The femur was retracted anteriorly. Attention drawn the acetabulum. The acetabular labrum was excised. Pulmonary fat was excised. Sequential reaming the acetabular was then performed with a size 47 progressing up to a 59. Reamed a little bit with a 60 reamer. I then placed a 60 mm Biomet G7 acetabular shell in about 40 degrees lateral opening and 20 degrees of anteversion. Was fixed with two 6.5 cancellous acetabular screws. Trial liner was placed. Attention drawn the femur. The proximal femur was then with a Spine Pain Management cutter followed by canal finder. I then broached beginning with size 8 and progressed up to 15. Get excellent fitted to 15. Trialed the hip. With a +5 articular ball the hip just seemed a little bit too tight in extension to clinic. The hip was fully stable. We elect to use +1.5 head. The hip was fully stable. Leg lengths appeared equal. We elect place his implants. All trial implants were removed. An apex hole supervisor leaf spring fabrication was placed. Highly cross-linked polyethylene liner was placed. A size 15 KLA femoral stem was impacted in position. A +1.5/40 mm ceramic articular ball was placed. Hip was located and once again found to be stable. Attention drawn toward closing. The wound was irrigated coconuts pulsatile lavage solution. We did inject locally with 60 cc of half percent Marcaine with epinephrine. Posterior capsule and external rotators were then repaired through drill holes in the posterior trochanter with #2 Tycron suture. The patient did have a partial hip abductor tear. We then repaired the hip abductors to the vastus lateralis with #1 Vicryl suture in a ivhwxs-jh-irmiw fashion. The IT band gluteal fascia then closed with #1 PDS suture running fashion. The subcutaneous tissues were then closed with 2 layers of the deep layer #1 Vicryl suture subcutaneous tissue with 2-0 Dexon suture in a buried interrupted fashion. Skin was closed skin marylin. Leg was then cleaned and dried and sterile dressing composed of Xeroform, 4 fours, sterile ABD pad and foam tape was applied. Patient then transferred to the recovery room in stable condition. Patient tolerated procedure well and there were no complications. Pedro Swain, my physician executive chef assistant, was present for the entire procedure. His assistance was essential and required for appropriate patient positioning, prepping and draping, surgical exposure, performing the technical details of the operation, placement the implants, closure of the wound, and placement of the sterile bandage. I attest to the content of the Intraoperative Record and any orders documented therein. Any exceptions are noted below.
--- NOTE | 2024-03-28 10:40 | Anesthesiology Progress Note ---
Date of Service March 28, 2024 Anesthesia Post Procedure Vital Signs Vital Signs: Temp Pulse Resp BP Pulse Ox O2 Del Method 03/28/24 07:04 36.6 C 71 20 121/82 96 Room Air Pain Intensity Right Hip: Pain Intensity: 8 Transfer of Care Handoff Completed per policy Notes Mental Status: alert / awake / arousable and participated in evaluation Patient Amnestic to Procedure: Yes Nausea / Vomiting: adequately controlled Pain: adequately controlled Airway Patency, RR, SpO2: stable & adequate BP & HR: stable & adequate Hydration State: stable & adequate Anesthetic Complications: no major complications apparent and Pt Satisfied with anesthetic care
--- NOTE | 2024-03-28 11:33 | XRay Report ---
XR hip 1V RT w pelvis CLINICAL HISTORY: IN PACU - Post Surgical TECHNIQUE: 1 view of the right hip and single frontal view of the pelvis were obtained. Comparison: Comparison is made to pelvis radiograph 06/08/2019 FINDINGS: Patient is status post right total hip arthroplasty with expected postsurgical changes including soft tissue swelling and subcutaneous emphysema. Left hip arthroplasty is unchanged. IMPRESSION: Expected postoperative appearance status post placement of total hip arthroplasty. ACT 112: Negative or not required by law. Electronically signed by: Nick Cardoza M.D. 03/28/2024 11:32 AM
[2024-03-28] MEDS ORDERED: METOCLOPRAMIDE HCL INJ 5 MG/ML 2 ML VIAL IV PRN (11:36)
[2024-03-28] MEDS ORDERED: NALOXONE HCL 0.4 MG/1 ML VIAL/CARP IV PRN (11:36)
[2024-03-28] MEDS ORDERED: bisacodyL 10 MG SUPP PR PRN (11:36)
[2024-03-28] MEDS ORDERED: MAGNESIUM HYDROXIDE SUSP 30 ML UDC PO PRN (11:36)
[2024-03-28] MEDS: SODIUM CHLORIDE 0.9% 1,000 ML IV SCH (11:48)
[2024-03-28] MEDS: KETOROLAC TROMETHAMINE 15 MG/ML VIAL IV SCH (12:56)
[2024-03-28] MEDS ORDERED: ACETAMINOPHEN 500 MG TAB PO SCH (14:00)
[2024-03-28] MEDS: TRANEXAMIC ACID / 0.7% NACL 1,000 MG/100 ML BAG IV SCH (16:00)
[2024-03-28] MEDS: ceFAZolin 1000MG 1,000 MG/7.5 ML SYR IV SCH (18:06)
[2024-03-28] MEDS: ASCORBIC ACID 500 MG TAB PO SCH (18:07)
[2024-03-28] MEDS: SENNA 8.6 MG TAB PO SCH (20:05)
[2024-03-28] MEDS: DOCUSATE SODIUM 100 MG CAP PO SCH (20:05)
[2024-03-28] MEDS: TAMSULOSIN HCL 0.4 MG CAP PO SCH (20:05)
[2024-03-28] MEDS: ASPIRIN 81 MG ECTAB PO SCH (20:05)
[2024-03-28] MEDS ORDERED: SENNA 8.6 MG TAB PO SCH (21:00)
[2024-03-29] MEDS: traMADol HCL 50 MG TABLET PO PRN (04:31)
[2024-03-29 07:21] LABS: Basophils # (auto) 0.02 K/uL (0.00-0.20); Basophils % (auto) 0.2 %; Eosinophils # (auto) 0.01 K/uL (0.00-0.50); Eosinophils % (auto) 0.1 %; Hematocrit (blood only) 33.1 % (42.0-52.0); Hemoglobin 11.2 g/dl (14.0-18.0); Immature Granulocytes # (auto) 0.07 K/uL (0.01-0.20); Immature Granulocytes % (auto) 0.6 %; Lymphocytes # (auto) 1.66 K/uL (1.20-3.40); Lymphocytes % (auto) 13.2 %; Mean Corpuscular Hemoglobin 31.1 pg (25.0-34.0); Mean Corpuscular Hgb Conc 33.8 g/dL (32.0-36.0); Mean Corpuscular Volume 91.9 fL (80.0-100.0); Mean Platelet Volume 9.9 fL (9.4-12.4); Monocytes # (auto) 1.22 K/uL (0.11-0.59); Monocytes % (auto) 9.7 %; Neutrophils # (auto) 9.63 K/uL (1.40-6.50); Neutrophils % (auto) 76.2 %; Platelet Count 230 K/uL (130-400); RDW Coefficient of Variation 13.6 % (11.5-14.5); White Blood Count 12.61 K/ul (4.8-10.8)
[2024-03-29] MEDS: MULTIVITAMIN TAB PO SCH (07:35)
[2024-03-29] MEDS: PANTOprazole 40 MG TAB PO SCH (07:35)
[2024-03-29] MEDS: dexAMETHasone 10 MG in SYRINGE 0 ML IV SCH (07:35)
[2024-03-29 07:38] LABS: BUN Creatinine Ratio 24.7 (10-20); Calcium 8.4 mg/dl (8.6-10.3); Est GFR (African American) 88.8 ml/min; Est GFR (Non-African American) 76.6 ml/min; Potassium 3.9 mmol/L (3.5-5.1)
[2024-03-29] MEDS ORDERED: TAMSULOSIN HCL 0.4 MG CAP PO SCH (09:00)
[2024-03-29] MEDS ORDERED: NON-FORMULARY MEDICATION (Multivitamin-Minerals-Lutein [Multivitamin 50 Plus] Tablet) PO SCH (09:00)
[2024-03-29] MEDS: HYDROmorphone INJ 0.5 MG/0.5 ML SYR IV PRN (10:23)
--- NOTE | 2024-03-29 14:27 | Surgery Progress Note ---
Date of Service March 29, 2024 Assessment & Plan (1) Status post right hip replacement: Plan: 73-year-old gentleman postop day 1 from a right total hip replacement. He seems to be doing well functionally. He has not been well compliant with hip precautions which is not too surprising to me. Plan: We discussed treatment. Apparently therapy is recommended rehab. He really does not want to go to rehab. He feels like he is getting around well enough and can limit his acting and bending activities. For discussion were going to a send him home with home health. Routine wound care. DVT prophylaxis including teds, SCDs, aspirin twice a day. Admission and Anticipated Discharge Date Admission Date: March 28, 2024 Subjective 73-year-old gentleman postop day 1 from a right hip replacement. He is doing pretty well. 7 bit more pain than he had yesterday. He says he is functioning well. Get around well with a walker. Denies any chest pain or shortness of breath. Not feeling dizzy or lightheaded. He seemed a bit annoyed that the therapist thought he was not compliant with her instructions. Physical Exam Physical Exam: Physical examination is a pleasant middle-age male pretty centimeters bed looks comfortable. Examination of the right hip reveals dressing clean dry and intact. Leg lengths are equal. Hip is located. He is neurologically intact. Respiratory: normal respiratory effort, lungs clear to auscultation Cardiovascular: RRR, no murmur, no edema Gastrointestinal (Abdomen): normal bowel sounds, soft, nontender, no hepatosplenomegaly Results & Data Vital Signs (Past 12 Hours) Vital Signs Temp Pulse Resp BP Pulse Ox O2 Del Method 03/29/24 07:08 37.2 C 62 16 133/85 94 Room Air 03/29/24 07:00 Room Air 03/29/24 04:28 36.8 C 78 18 132/73 99 Room Air Laboratory Results Hemoglobin is 11.2. Hematocrit is 33.1. Electrolytes are stable. PG Care Time/CCT Total # of Minutes Spent Total Time Spent with Patient: Total time spent is greater than 50% in coordination of care (as documented) at patient's floor/unit and/or counseling patient: Coding Level of Care Code 91585 Post Operative Follow-Up Diagnoses Status post right hip replacement Z96.641
--- NOTE | 2024-04-03 09:09 | Discharge Summary ---
Date of Service April 03, 2024 Discharge Data Procedures Performed Operation Date: 03/28/24 08:50 Actual Procedures p Right Total Hip Arthroplasty(Right) - Joseph Brewer MD Hospital Course (1) Status post right hip replacement: This is a 73 year old patient admitted on 03/28/24 and underwent total hip arthroplasty. He tolerated the procedure well and there were no complications. Transferred to the PACU post op and later to the orthopedic floor for further care. He was given ancef for antibiotic prophylaxis. He was also given KAYLYNN stockings, SCDs, and aspirin for DVT prophylaxis. Hemoglobin, hematocrit, and vital signs were monitored during his hospital stay and remained stable. Did not require any blood transfusions. There were no complications during his hospital stay. By post op day #1 the patient was tolerating a regular diet, pain was reasonably controlled with oral pain medicine, and he was participating in physical therapy. On post op day #1 the patient was discharged home and set up with home health care. He was given printed discharge instructions including prescriptions for extra strength tylenol, aspirin, ketorolac, zofran, senokot, flomax, and tramadol. Continue hip precautions. Continue physical therapy, weight bearing as tolerated. Continue KAYLYNN stockings. Follow up approximately 2 weeks post op or sooner if there are problems or concerns. Coding Level of Care Code None Diagnoses Status post right hip replacement Z96.641
== END 2024-03-29 15:15 | disposition home health service (06) ==
LOC: 3E 06:33 → ASU 06:33
DX: Z79.82 Long term (current) use of aspirin; Z79.899 Other long term (current) drug therapy; X58.XXXA Exposure to other specified factors, initial encounter; E78.5 Hyperlipidemia, unspecified; S76.011A Strain of muscle, fascia and tendon of right hip, initial encounter; M16.11 Unilateral primary osteoarthritis, right hip; N40.0 Benign prostatic hyperplasia without lower urinary tract symptoms